=== PATIENT | male | born 1975 | race Caucasian/White ===

== ENCOUNTER 2018-03-23 10:18 | Emergency (ER) | payer OTHER ==
[2018-03-23] MEDS ORDERED: TDAP ADULT 0.5 ML INJ (BOOSTRIX) IM ONE (10:38)
--- NOTE | 2018-03-23 10:45 | EDPHY ---
H & P Stated Complaint: Nozzle on pressure hose hit pt in lip;small lac noted;no LOC Time Seen by Provider: 03/23/18 10:34 HPI/ROS: CHIEF COMPLAINT: Facial injury from gas valve HISTORY OF PRESENT ILLNESS: 42-year-old male works at a [employer] was removing a a gas follows under high-pressure when the right later came off and impacted the left side of his face and head. Brief loss of consciousness. He was seen at urgent care referred to the ER for imaging studies. He is currently complaining of nonprogressive non thunderclap headache as well as left zygomatic arch an infraorbital pain. He also sustained an abrasion to his left upper lip. No diplopia or abnormal vision. No visual acuity changes. No dental malalignment. No mandible pain. No midline C-spine pain. PRIMARY CARE PROVIDER:Worker's compensation REVIEW OF SYSTEMS: 10 systems reviewed and negative with the exception of the elements mentioned in the history of present illness PAST MEDICAL/SURGICAL HISTORY: no anticoagulant use, no relevant medical/ surgical history. Tetanus out-of-date SOCIAL HISTORY: denies alcohol use at time of incident PHYSICAL EXAM 1) GENERAL: Well-developed, well-nourished, alert and oriented. Appears to be in no acute distress. Answering questions appropriately. 2) HEAD: Normocephalic, atraumatic 3) HEENT: Pupils equal, round, reactive to light bilaterally. Negative Horners. Nasopharynx, oropharynx, clear. No deformity or angulation of nose. No septal hematoma. No rhinorrhea. No proptosis. No pain with extraocular movements. Tender to palpation left infraorbital and left zygomatic arch region. No abnormal gaze with extraocular movements. Left upper lip non through and through 5 mm laceration. Non gaping. No oral trauma. Ears bilaterally with normal tympanic membranes. No hemotympanum. No fluid or blood in the external auditory canal. No maxillary instability. No raccoon eyes. No Alfonso sign. Teeth are normally aligned with no gross malocclusion, TMJ bilaterally nontender, facial bones nontender including the zygomatic arch, maxilla mandible. 4) NECK: No cervical collar is on. Posterior cervical spine is nontender, no stepoff, no effusion. Full range of motion which does not elicit any midline cervical spine pain, no posterior midline tenderness, no step-off. 5) LUNGS: Clear to auscultation bilaterally, no wheezes, no rhonchi, no retractions. No obvious signs of trauma. No chest wall pain. No flaring, no grunting. Moving symmetrically. No crepitus. 6) HEART: [Regular rate and rhythm, 7) ABDOMEN: No guarding, no rebound, no focal tenderness, no peritoneal signs, no signs of trauma, no ecchymosis 8) MUSCULOSKELETAL: Moving all extremities, no focal areas of tenderness, no obvious trauma. 9) BACK: No midline vertebral tenderness, no fluctuance, no step-off, no obvious trauma, no visual or palpable abnormality. 10) SKIN: No laceration. No abrasion 11) NEURO: Awake, alert, and oriented to person, place and time. Answers questions appropriately. There were no obvious focal neurologic abnormalities. No cerebellar dysfunction. Cranial nerves 2 through to 12 intact. Normal steady gait. Upper and lower extremities bilaterally with strength 5 / 5, reflexes 2+. DIFFERENTIAL DIAGNOSIS: Not necessarily in any particular order, my differential diagnosis includes, but is not limited to, concussion, skull fracture, intraparenchymal contusion, subarachnoid, subdural and epidural hematoma. The patient understands that this diagnosis is provisional and can never be 100% accurate. - Personal History Current Tetanus Diphtheria and Acellular Pertussis (TDAP): No - Social History Smoking Status: Never smoked Constitutional: Initial Vital Signs Temperature (C) 36.6 C 03/23/18 10:20 Heart Rate 71 03/23/18 10:20 Respiratory Rate 16 03/23/18 10:20 Blood Pressure 150/91 H 03/23/18 10:20 O2 Sat (%) 98 03/23/18 10:20 O2 Delivery Mode Room Air Allergies/Adverse Reactions: No Known Allergies Allergy (Unverified 03/23/18 10:35) Home Medications: Medication Instructions Recorded NK [No Known Home Meds] 03/23/18 Medical Decision Making - Diagnostics Imaging Results: Imaging Impressions Head CT 03/23/18 10:39 Impression: 1. No significant intracranial abnormality seen. 2. Mild nonspecific paranasal sinus disease. If symptoms worsen, additional imaging may be necessary. Findings discussed with D Alee Cami PAC at 13:16 hour, 03/23/2018. Images reviewed myself ED Course/Re-evaluation: 10:45 a.m.: Head CT ordered in this patient for trauma for the following indication: severe headache. I saw this patient independently based on established practice protocols. Care of patient under supervision of secondary supervising physician Dr Rebel Arellano with whom I discussed case. 1:17 p.m.: CT interpreted by radiologist is negative for intracranial hemorrhage, skull fracture, facial fracture for visualized areas. 11:19 p.m. Patient was re-evaluated by myself at this time. His wound will be allowed to heal via secondary intention, there non through and through, not and cosmetic area involving primarily the buccal mucosa only. Usual and customary head injury precautions instructions provided. - Data Points Medications Given: Discontinued Medications Diphtheria/Tetanus/Acell Pertussis (Boostrix) 0.5 ml IM .ONCE ONE Stop: 03/23/18 10:39 Last Admin: 03/23/18 10:43 Dose: 0.5 ml Departure - Departure Disposition: Home, Routine, Self-Care Clinical Impression: Head injury Qualifiers: Encounter type: initial encounter Qualified Code(s): S09.90XA - Unspecified injury of head, initial encounter Condition: Good Instructions: Head Injury (ED) Additional Instructions: ALTHOUGH THERE IS NO EVIDENCE OF SERIOUS HEAD INJURY AT THIS TIME, DELAYED SIGNS CAN APPEAR 24 TO 48 HOURS AFTER INJURY. PLEASE RETURN TO THE EMERGENCY DEPARTMENT (ED) IMMEDIATELY IF YOU HAVE INCREASED HEADACHE, PERSISTENT HEADACHE , VOMITING, WEAKNESS, CONFUSION OR VISUAL PROBLEMS. WE RECOMMEND THAT YOU DO NOT RESUME CONTACT SPORTS OR ACTIVITIES THAT TAKE COORDINATION OR BALANCE SUCH SKIING OR RIDING A BICYCLE UNTIL CLEARED TO DO SO BY YOUR DOCTOR OR BY A NEUROLOGIST. Referrals: Anali Miller MD [Medical Doctor] - As per Instructions Stand Alone Forms: Work Comp Follow Up
[2018-03-23 13:30] VITALS: BP 155/91
== END 2018-03-23 13:28 | disposition home or self-care (01) ==
DX: S09.90XA Unspecified injury of head, initial encounter (principal); Z23 Encounter for immunization; W20.8XXA Other cause of strike by thrown, projected or falling object, initial encounter; Y99.0 Civilian activity done for income or pay